=== PATIENT | male | born 1945 | race Caucasian/White ===

== ENCOUNTER 2018-09-24 17:20 | Observation (INO) | payer MEDICARE, BC ==
[~2018-09-24] VITALS: Ht 177.8 cm; Wt 116.0 kg
[~2018-09-24 17:20] MED LIST: ATOR10TA87 PO; DIPH25CA83 PO; LOP25T PO; [UNRECOGNIZED DRUG - REMARK]
[2018-09-24 18:45] LABS: BASOPHILS # (AUTO) 0.1 X10'3 (0-0.2); EOSINOPHILS # (AUTO) 0.3 X10'3 (0-0.9); HEMATOCRIT 46.5 % (42.0-52.0); HEMOGLOBIN 16.3 g/dl (14.0-17.9); LYMPHOCYTES # (AUTO) 1.6 X10'3 (1.1-4.8); LYMPHOCYTES % (AUTO) 28.2 % (21-51); MEAN CORPUSCULAR HEMOGLOBIN 29.4 PG (27.0-31.0); MEAN PLATELET VOLUME 8.1 FL (7.4-10.4); MONOCYTES # (AUTO) 0.7 X10'3 (0-0.9); MONOCYTES % (AUTO) 12.5 % (2-12); NEUTROPHILS # (AUTO) 2.9 X10'3 (1.8-7.7); NEUTROPHILS % (AUTO) 52.3 % (42-75); PLATELET COUNT 195 X10'3 (140-440); RED BLOOD COUNT 5.53 X10'6 (4.70-6.10); RED CELL DISTRIBUTION WIDTH 13.8 % (11.5-14.5); WHITE BLOOD COUNT 5.6 X10'3 (4.5-11.0)
[2018-09-24 18:53] LABS: ALANINE AMINOTRANSFERASE 36 U/L (12-78); ALBUMIN 4.1 G/DL (3.4-5.0); ALBUMIN/GLOBULIN RATIO 1.1 (1.1-1.5); ALKALINE PHOSPHATASE 100 IU/L (46-116); ANION GAP 10 (8-16); ASPARTATE AMINO TRANSFERASE 23 U/L (10-37); BILIRUBIN,TOTAL 0.3 MG/DL (0.1-1.0); BLOOD UREA NITROGEN 11 MG/DL (7-18); CALCIUM 9.4 MG/DL (8.5-10.1); CHLORIDE 104 MMOL/L (99-107); GLUCOSE 108 MG/DL (70-104); PARTIAL THROMBOPLASTIN TIME 27 SECONDS (22-32); POTASSIUM 3.9 MMOL/L (3.5-5.1); PROTHROMBIN TIME 10.5 SECONDS (9.0-12.0); SODIUM 139 MMOL/L (135-145); TOTAL CARBON DIOXIDE 24.9 MMOL/L (24-32); TOTAL PROTEIN 7.7 G/DL (6.4-8.2); eGFR 73 ML/MIN
[2018-09-24] MEDS ORDERED: temazepam 15mg capsule PO PRN (21:00)
[2018-09-24] MEDS ORDERED: mag hydrox/Alum hydrox/simeth 30ml oral suspension PO PRN (21:05)
[2018-09-24] MEDS ORDERED: metoprolol tartrate 1mg/ml inj IV PRN (21:05)
[2018-09-24] MEDS ORDERED: aminophylline 250mg/10ml inj. IV PRN (21:05)
[2018-09-24] MEDS ORDERED: regadenoson 0.4mg/5ml syringe IV ONE ×2 (21:05→21:25)
[2018-09-24] MEDS ORDERED: HYDROcodone/acetaminophen 5mg/325mg tablet PO PRN (21:05)
[2018-09-24] MEDS ORDERED: magnesium hydroxide 30ml (MOM) UD suspension PO PRN (21:05)
[2018-09-24] MEDS ORDERED: ondansetron/PF 4mg/2ml inj IV PRN (21:05)
[2018-09-24] MEDS ORDERED: nitroGLYCERIN 0.4mg SUBLingual tab SL PRN (21:05)
[2018-09-24] MEDS ORDERED: acetaminophen 325mg tablet PO PRN ×2 (21:05)
[2018-09-24] MEDS ORDERED: ALLO100T PO (21:46)
[2018-09-24] MEDS ORDERED: ASPI81TA52 PO (21:47)
[2018-09-24] MEDS ORDERED: FLO0.4C PO (21:47)
[2018-09-24] MEDS ORDERED: DILT180C95 PO (21:48)
[2018-09-24] MEDS ORDERED: OMEP20TA23 PO (21:50)
--- NOTE | 2018-09-24 21:57 | NUR ---
PATIENT HAD CP EARLIER TODAY WHILE WALKING AT 1630; STOPPED WALKING AND CP WENT AWAY
[2018-09-24 22:20] VITALS: BP 173/94
[2018-09-25] VITALS (11 sets, daily range): BP systolic 138–179; BP diastolic 74–100
[2018-09-25 00:44] LABS: ALBUMIN 3.8 G/DL (3.4-5.0); ANION GAP 10 (8-16); BLOOD UREA NITROGEN 12 MG/DL (7-18); BUN/CREATININE RATIO 11.3 (5.4-32.0); CALCIUM 9.5 MG/DL (8.5-10.1); CHLORIDE 105 MMOL/L (99-107); CREATININE 1.06 MG/DL (0.60-1.10); GLUCOSE 156 MG/DL (70-104); POTASSIUM 3.8 MMOL/L (3.5-5.1); SODIUM 139 MMOL/L (135-145); TOTAL CARBON DIOXIDE 23.8 MMOL/L (24-32); eGFR 68 ML/MIN
--- NOTE | 2018-09-25 06:20 | NUR ---
Problems reprioritized. Patient report given, questions answered & plan of care reviewed with HECTOR Yen.
--- NOTE | 2018-09-25 06:27 | NUR ---
received report from fidel castillo
[2018-09-25 06:46] LABS: BASOPHILS # (AUTO) 0.1 X10'3 (0-0.2); BASOPHILS % (AUTO) 1.1 % (0-1); EOSINOPHILS # (AUTO) 0.4 X10'3 (0-0.9); EOSINOPHILS % (AUTO) 7.4 % (0-6); HEMATOCRIT 44.9 % (42.0-52.0); HEMOGLOBIN 15.3 g/dl (14.0-17.9); LYMPHOCYTES # (AUTO) 1.7 X10'3 (1.1-4.8); LYMPHOCYTES % (AUTO) 30.5 % (21-51); MEAN CORPUSCULAR HEMOGLOBIN 28.9 PG (27.0-31.0); MEAN PLATELET VOLUME 8.4 FL (7.4-10.4); MONOCYTES # (AUTO) 0.7 X10'3 (0-0.9); MONOCYTES % (AUTO) 12.8 % (2-12); NEUTROPHILS # (AUTO) 2.6 X10'3 (1.8-7.7); NEUTROPHILS % (AUTO) 48.2 % (42-75); PLATELET COUNT 173 X10'3 (140-440); RED BLOOD COUNT 5.28 X10'6 (4.70-6.10); WHITE BLOOD COUNT 5.5 X10'3 (4.5-11.0)
[2018-09-25] MEDS ORDERED: aspirin 81mg tablet.DR PO SCH (08:00)
--- NOTE | 2018-09-25 09:40 | NUR ---
[facility]
[2018-09-25] MEDS ORDERED: aminophylline inj. 10 ML IV ONE (09:51)
[2018-09-25] MEDS ORDERED: regadenoson 0.4mg/5ml syringe IV ONE (09:51)
--- NOTE | 2018-09-25 11:15 | NUR ---
pt back on floor from candelario
== END 2018-09-25 13:28 | disposition home or self-care (01) ==
LOC: ER 17:20 → ED HOLD 21:07 → ORTHO 4S 22:15
PROVIDERS: ADMIT Hospitalist; ATTEND Hospitalist
DX: R07.9 Chest pain, unspecified (principal); I49.9 Cardiac arrhythmia, unspecified; I10 Essential (primary) hypertension; I49.5 Sick sinus syndrome; I48.91 Unspecified atrial fibrillation; Z95.0 Presence of cardiac pacemaker
CPT/HCPCS: 36415; 71045; 78452; 80048; 80053; 84484; 85025; 85610; 85730; 87070; 93005; 93017; 99284; A9500; G0378; J0280

== ENCOUNTER 2023-09-07 08:41 | Inpatient (IN) | payer MEDICARE, BC ==
[~2023-09-07] VITALS: Ht 177.8 cm; Wt 120.0 kg
[~2023-09-07 08:41] MED LIST changes: +ALLO100T PO; +ASPI81TA52 PO; -ATOR10TA87 PO; +DILT-36 PO; -DIPH25CA83 PO; +FLO0.4C PO; -LOP25T PO; +OMEP20TA23 PO; -[UNRECOGNIZED DRUG - REMARK]
[2023-09-07] MEDS ORDERED: iohexol 350MG/ML 100ml bottle IV ONE (09:00)
[2023-09-07 09:07] LABS: BASOPHILS # (AUTO) 0.1 X10'3 (0-0.2); EOSINOPHILS # (AUTO) 0.2 X10'3 (0-0.9); EOSINOPHILS % (AUTO) 3.8 % (0-6); HEMATOCRIT 49.6 % (42.0-52.0); HEMOGLOBIN 16.8 g/dl (14.0-17.9); LYMPHOCYTES # (AUTO) 1.9 X10'3 (1.1-4.8); LYMPHOCYTES % (AUTO) 32.5 % (21-51); MEAN CORPUSCULAR HEMOGLOBIN 29.5 PG (27.0-31.0); MEAN CORPUSCULAR HGB CONC 33.9 g/dL (33.0-36.5); MEAN CORPUSCULAR VOLUME 86.9 FL (78-98); MONOCYTES # (AUTO) 0.8 X10'3 (0-0.9); MONOCYTES % (AUTO) 13.3 % (2-12); NEUTROPHILS # (AUTO) 2.9 X10'3 (1.8-7.7); NEUTROPHILS % (AUTO) 49.4 % (42-75); PLATELET COUNT 169 X10'3 (140-440); RED BLOOD COUNT 5.71 X10'6 (4.70-6.10); RED CELL DISTRIBUTION WIDTH 14.4 % (11.5-14.5); WHITE BLOOD COUNT 5.8 X10'3 (4.5-11.0)
[2023-09-07 09:23] LABS: APTT 27 SECONDS (22-32); PROTHROMBIN TIME 10.5 SECONDS (9.0-12.0)
[2023-09-07] MEDS ORDERED: LEVO112T52 PO (09:26)
[2023-09-07] MEDS ORDERED: SACU1TAB7 PO (09:26)
[2023-09-07] MEDS: clopidogrel 300mg tablet PO ONE (09:58)
[2023-09-07] MEDS: aspirin 325mg tablet PO ONE (09:58)
[2023-09-07] MEDS ORDERED: magnesium hydroxide 30ml (MOM) UD suspension PO PRN (13:00)
[2023-09-07] MEDS ORDERED: potassium Cl 40MEQ/1/2NS 520ml 520 ML IV PRN (13:00)
[2023-09-07] MEDS ORDERED: morphine 2 MG/ML inj. syringe IV PRN (13:00)
[2023-09-07] MEDS ORDERED: acetaminophen 325mg tablet PO PRN (13:00)
[2023-09-07] MEDS ORDERED: mag hydrox/Alum hydrox/simeth 30ml oral suspension PO PRN (13:00)
[2023-09-07] MEDS ORDERED: magnesium 2GM in 50ml NS 50 ML IV PRN (13:00)
[2023-09-07] MEDS ORDERED: potassium Cl 20 mEq SR tablet PO PRN ×2 (13:00)
[2023-09-07] MEDS ORDERED: ondansetron/PF 4mg/2ml inj IV PRN (13:00)
[2023-09-07] MEDS ORDERED: magnesium Cl slow-release 64mg tablet PO PRN (13:00)
[2023-09-07] MEDS ORDERED: magnesium 4gm in 100ml NS 100 ML IV PRN (13:00)
[2023-09-07] MEDS ORDERED: pantoprazole 40mg Tablet.DR PO PRN (13:05)
[2023-09-07 13:50] LABS: ALKALINE PHOSPHATASE 98 IU/L (46-116)
[2023-09-07 13:51] LABS: ALANINE AMINOTRANSFERASE 36 U/L (12-78); ALBUMIN/GLOBULIN RATIO 1.1 (1.1-1.5); ANION GAP 13 (8-16); ASPARTATE AMINO TRANSFERASE 28 U/L (10-37); BILIRUBIN,TOTAL 0.5 MG/DL (0.1-1.0); BLOOD UREA NITROGEN 16 MG/DL (7-18); BUN/CREATININE RATIO 14.8 (10.0-20.0); CALCIUM 8.6 MG/DL (8.5-10.1); CHLORIDE 102 MMOL/L (99-107); CHOL/HDL RATIO 6.9 (0.00-4.99); CHOLESTEROL 220 MG/DL (0-200); CREATININE 1.08 MG/DL (0.60-1.10); GLUCOSE 155 MG/DL (70-104); HDL CHOLESTEROL 32 MG/DL (35-60); LDL CHOLESTEROL 134 MG/DL (50-100); MAGNESIUM 1.9 MG/DL (1.5-2.4); POTASSIUM 4.3 MMOL/L (3.5-5.1); SODIUM 138 MMOL/L (135-145); TOTAL CARBON DIOXIDE 23.1 MMOL/L (24-32); TOTAL PROTEIN 7.5 G/DL (6.4-8.2); TRIGLYCERIDES 392 MG/DL (20-135); eCRCL 57 ML/MIN; eGFR 66 ML/MIN
[2023-09-07 14:36] LABS: BILIRUBIN,DIRECT 0.1 MG/DL (0-0.3); HEMOGLOBIN A1C 6.7 % (4.5-6.2)
[2023-09-07 20:00] VITALS: BP 169/87; PULSE 66; RESP 16; TEMP 97.8; O2SAT 96
[2023-09-07] MEDS: K and/or MAG REPLACEMENT MC SCH (20:00)
[2023-09-07] MEDS: sacubitril/valsartan 49mg-51mg tablet PO SCH (20:13)
[2023-09-07] MEDS: heparin, porcine 5000 units/ml vial SQ SCH (20:17)
[2023-09-07 22:00] VITALS: BP 146/80; PULSE 60; RESP 16; TEMP 97.6; O2SAT 96
[2023-09-08 02:37] VITALS: BP 154/85; PULSE 61; RESP 15; O2SAT 100
[2023-09-08] MEDS: levoTHYROXINE 112mcg tablet PO SCH (04:19)
[2023-09-08 06:00] VITALS: BP 127/78; PULSE 60; RESP 18; TEMP 96.8; O2SAT 98
[2023-09-08] MEDS: tamsulosin 0.4mg capsule PO SCH (07:44)
[2023-09-08 08:08] LABS: BASOPHILS % (AUTO) 0.7 % (0-1); EOSINOPHILS # (AUTO) 0.2 X10'3 (0-0.9); EOSINOPHILS % (AUTO) 4.3 % (0-6); HEMATOCRIT 49.9 % (42.0-52.0); HEMOGLOBIN 17.2 g/dl (14.0-17.9); LYMPHOCYTES # (AUTO) 1.9 X10'3 (1.1-4.8); LYMPHOCYTES % (AUTO) 33.6 % (21-51); MEAN CORPUSCULAR HEMOGLOBIN 29.7 PG (27.0-31.0); MEAN CORPUSCULAR HGB CONC 34.4 g/dL (33.0-36.5); MEAN CORPUSCULAR VOLUME 86.1 FL (78-98); MEAN PLATELET VOLUME 8.2 FL (7.4-10.4); MONOCYTES # (AUTO) 0.7 X10'3 (0-0.9); MONOCYTES % (AUTO) 12.7 % (2-12); NEUTROPHILS # (AUTO) 2.7 X10'3 (1.8-7.7); NEUTROPHILS % (AUTO) 48.7 % (42-75); PLATELET COUNT 182 X10'3 (140-440); RED CELL DISTRIBUTION WIDTH 14.4 % (11.5-14.5); WHITE BLOOD COUNT 5.6 X10'3 (4.5-11.0)
[2023-09-08 08:31] LABS: ALANINE AMINOTRANSFERASE 31 U/L (12-78); ALBUMIN/GLOBULIN RATIO 1.1 (1.1-1.5); ALKALINE PHOSPHATASE 81 IU/L (46-116); ANION GAP 7 (8-16); ASPARTATE AMINO TRANSFERASE 24 U/L (10-37); BILIRUBIN,TOTAL 0.9 MG/DL (0.1-1.0); BLOOD UREA NITROGEN 14 MG/DL (7-18); BUN/CREATININE RATIO 13.6 (10.0-20.0); CALCIUM 8.9 MG/DL (8.5-10.1); CHLORIDE 103 MMOL/L (99-107); CREATININE 1.03 MG/DL (0.60-1.10); GLUCOSE 146 MG/DL (70-104); MAGNESIUM 1.9 MG/DL (1.5-2.4); SODIUM 137 MMOL/L (135-145); TOTAL CARBON DIOXIDE 27.3 MMOL/L (24-32); TOTAL PROTEIN 7.6 G/DL (6.4-8.2); eCRCL 60 ML/MIN; eGFR 70 ML/MIN
[2023-09-08 10:00] VITALS: BP 126/66; PULSE 60; RESP 18; TEMP 98.1; O2SAT 98
[2023-09-08] MEDS ORDERED: ASPI81TA53 PO (10:38)
[2023-09-08] MEDS ORDERED: CLOP75TA34 PO (10:38)
[2023-09-08] MEDS ORDERED: ATOR20TA66 PO (10:38)
[2023-09-08] MEDS: clopidogrel 75mg tablet PO SCH (10:49)
[2023-09-08] MEDS: aspirin 81mg tab.chew PO SCH (10:50)
== END 2023-09-08 12:30 | disposition home or self-care (01) | DRG 69 ==
LOC: ER 08:41 → ED HOLD 13:01 → ORTHO 4S 19:28
PROVIDERS: ADMIT Internal Medicine; ATTEND Internal Medicine
PROC: B3251ZZ Computerized Tomography (CT Scan) of Bilateral Common Carotid Arteries using Low Osmolar Contrast (ICD-10-PCS; principal; 2023-09-07)
PROC: B32G1ZZ Computerized Tomography (CT Scan) of Bilateral Vertebral Arteries using Low Osmolar Contrast (ICD-10-PCS; 2023-09-07)
PROC: B32R1ZZ Computerized Tomography (CT Scan) of Intracranial Arteries using Low Osmolar Contrast (ICD-10-PCS; 2023-09-07)
PROC: B3281ZZ Computerized Tomography (CT Scan) of Bilateral Internal Carotid Arteries using Low Osmolar Contrast (ICD-10-PCS; 2023-09-07)
DX: G45.9 Transient cerebral ischemic attack, unspecified (principal); E11.9 Type 2 diabetes mellitus without complications; G43.909 Migraine, unspecified, not intractable, without status migrainosus; I25.10 Atherosclerotic heart disease of native coronary artery without angina pectoris; Z79.899 Other long term (current) drug therapy; I25.2 Old myocardial infarction; Z95.1 Presence of aortocoronary bypass graft; Z95.0 Presence of cardiac pacemaker; Z85.850 Personal history of malignant neoplasm of thyroid; Z85.46 Personal history of malignant neoplasm of prostate; Z87.891 Personal history of nicotine dependence
CPT/HCPCS: 36415; 70496; 70498; 71045; 80048; 80053; 80061; 80076; 82948; 83036; 83735; 84484; 85025; 85610; 85730; 87081; 93005; 93306; 97161; 97535; 99291; G0378; J1644; J3490; Q9967